=== PATIENT | female | born 1980 | race Caucasian/White ===

== ENCOUNTER 2020-02-24 21:07 | Emergency (ER) | payer MEDICAID ==
[~2020-02-24] VITALS: Ht 170.2 cm; Wt 74.8 kg
[2020-02-24 21:18] VITALS: BP 113/65
--- NOTE | 2020-02-24 21:33 | NUR ---
Pt arrives to ed with pelvic pain and urinary increased frquency and painful urination. Pt reports moderate discomfort with urination.
--- NOTE | 2020-02-24 21:49 | NUR ---
Pt reports cj she is concerned her previous infection has not cleared up or possible sti. Pt denies multiple partners. Pt reports partner has shown no symptoms.
[2020-02-24 22:10] LABS: HCG UR SG 1.012 (1.003-1.030); MICROSCOPIC AUTO
[2020-02-24 22:12] LABS: CULTURE INDICATED? YES
[2020-02-24 22:50] LABS: CLUE CELLS NONE SEEN (NONE SEEN); WET PREP WBCS MODERATE (FEW)
[2020-02-24] MEDS ORDERED: CEFTRIAXONE 250 MG ONE (23:20)
[2020-02-24] MEDS ORDERED: LIDOCAINE-MPF 1%, 5ML ONE (23:20)
[2020-02-24] MEDS ORDERED: AZITHROMYCIN 250 MG TABLET ONE (23:21)
--- NOTE | 2020-02-24 23:26 | NUR ---
PT MEDICATED PER EMAR.
[2020-02-24] MEDS ORDERED: CEFTRIAXONE 250 MG IM ONE (23:30)
[2020-02-24] MEDS ORDERED: AZITHROMYCIN 500 MG TABLET PO ONE (23:30)
--- NOTE | 2020-02-24 23:31 | NUR ---
Patient/Caregiver given discharge instructions and they have confirmed that they understand the instructions. Patient ambulatory with steady gait.
== END 2020-02-24 23:33 | disposition home or self-care (01) ==
LOC: ED 22:17
DX: R30.0 Dysuria (principal); N89.8 Other specified noninflammatory disorders of vagina
CPT/HCPCS: 81001; 81025; 87077; 87086; 87210; 87491; 87591; 87808; 96372; 99284; J0696; 87186